=== PATIENT | male | born 1965 | race Caucasian/White ===

== ENCOUNTER → 2018-06-09 07:26 | Outpatient (CLI) | payer OTHER, SELFPAY ==
[2018-06-09 09:22] LABS: Add Manual Diff / Slide Review NO; Basophils Absolute Auto 0 /uL (0-100); Basophils Percent Auto 0.5 % (0-2); Eosinophils Absolute Auto 100 /uL (0-450); Eosinophils Percent Auto 1.7 % (2-4); Hematocrit 43.6 % (41-53); Hemoglobin 15.4 g/dL (13.5-17.5); Lymphocytes Absolute Auto 1400 /uL (1100-4500); Lymphocytes Percent Auto 29.2 % (25-40); Mean Corpuscular HGB Conc 35.2 % (30-36); Mean Corpuscular Hemoglobin 29.3 PG (26-34); Mean Corpuscular Volume 83.1 fL (80-100); Monocytes Absolute Auto 500 /uL (0-900); Monocytes Percent Auto 9.9 % (3-14); Neutrophils Absolute Auto 2800 /uL (1500-7000); Neutrophils Percent Auto 58.7 % (50-75); Platelet Count 214 X10^3/uL (150-400); Red Blood Cell Count 5.25 X10^6/uL (4.5-5.9); Red Cell Distribution Width 13.3 % (11.6-14.8); White Blood Cell Count 4.7 X10^3/uL (4.5-11.0)
[2018-06-09 09:41] LABS: Alanine Aminotransferase 39 IU/L (21-72); Albumin 4.4 g/dL (3.5-5.0); Albumin Globulin Ratio 1.7 (1.0-2.8); Alkaline Phosphatase 65 U/L (38-126); Aspartate Aminotransferase 30 IU/L (17-59); BUN Creatinine Ratio 15.5 (6-22); Bilirubin Total 0.6 mg/dL (0.2-1.3); Blood Urea Nitrogen 17 mg/dL (9-20); Calcium 9.4 mg/dL (8.4-10.2); Carbon Dioxide 29 mmol/L (22-32); Chloride 100 mmol/L (98-107); Cholesterol 180 mg/dL (140-199); Estimated Glomerular Filt Rate > 60.0 mL/min (>60); Globulin 2.6 g/dL (1.7-4.1); Glucose 89 mg/dL (70-100); HDL Cholesterol 37 mg/dL (40-60); HEMOLYSIS < 15 (0-50); LDL Cholesterol Calculated 123 mg/dL (<100); Potassium 4.4 mmol/L (3.4-5.1); Sodium 139 mmol/L (137-145); Triglycerides 98 mg/dL (35-150)
[2018-06-09 09:42] LABS: Hemoglobin A1C% w Est Avg Glu 5.4 % (4.0-6.0)
[2018-06-09 10:13] LABS: TSH w/ Reflex to FT4 5.65 uIU/mL (0.47-4.68)
[2018-06-09 11:35] LABS: Free T4, Direct Thyroxine 1.24 ng/dL (0.78-2.19)
== END ==
PROVIDERS: Family Provider Family Medicine; PCP Family Medicine; Visit Provider Family Medicine
DX: E03.9 Hypothyroidism, unspecified (principal); N52.9 Male erectile dysfunction, unspecified; Z13.220 Encounter for screening for lipoid disorders
CPT/HCPCS: 36415; 80053; 80061; 83036; 84403; 84439; 84443; 85025

== ENCOUNTER → 2018-11-17 11:48 | Outpatient (CLI) | payer OTHER, SELFPAY | PROVIDERS: Family Provider Family Medicine; PCP Family Medicine; Visit Provider Family Medicine | DX: H57.89 Other specified disorders of eye and adnexa (principal) | CPT/HCPCS: 87070; 87205 ==

== ENCOUNTER → 2022-02-12 07:14 | Outpatient (CLI) | payer OTHER, SELFPAY ==
[2022-02-12 08:34] LABS: Cholesterol 203 mg/dL (140-199); HDL Cholesterol 43 mg/dL (40-60); LDL Cholesterol Calculated 143 mg/dL (<100); Triglycerides 84 mg/dL (35-150)
[2022-02-12 08:51] LABS: T4 Total Thyroxine 8.24 ug/dL (5.5-11.0)
[2022-02-12 09:43] LABS: Free T4, Direct Thyroxine 0.91 ng/dL (0.78-2.19)
[2022-02-12 22:07] LABS: Triiodothyronine T3 Total 138 ng/dL (71-180)
== END ==
PROVIDERS: Family Provider Family Medicine; PCP Family Medicine; Referring Provider Family Medicine; Visit Provider Family Medicine
DX: E78.5 Hyperlipidemia, unspecified (principal); E05.90 Thyrotoxicosis, unspecified without thyrotoxic crisis or storm
CPT/HCPCS: 36415; 80061; 84436; 84439; 84443; 84480

== ENCOUNTER → 2022-03-28 10:08 | Outpatient (CLI) | payer OTHER, SELFPAY ==
[2022-03-28 11:20] LABS: Thyroid Stimulating Hormone 10.5 uIU/mL (0.47-4.68)
== END ==
PROVIDERS: Family Provider Family Medicine; PCP Family Medicine; Referring Provider Family Medicine; Visit Provider Family Medicine
DX: E03.9 Hypothyroidism, unspecified (principal)
CPT/HCPCS: 36415; 84443

== ENCOUNTER 2022-05-14 08:05 | Day surgery (SDC) | payer OTHER, SELFPAY ==
--- NOTE | 2022-05-14 | PATH_ITS ---
[facility] Accession Number: [id number] No. of containers..01 Tissue . 01 Material submitted: . colon - RANDOM COLON BIOPSIES . 01 Diagnosis: Random Colon, Biopsies: Lymphocytic colitis. Negative for granulomas, dysplasia, and malignancy. MRV 05/17/2022 1614 Local . 01 Electronically signed: . Lubna Brooks MD, Pathologist NPI- [id number] . 01 Gross description: . RANDOM COLON BIOPSIES: Received in formalin is 1 fragment(s) of ordonez, soft tissue measuring 0.2 x 0.2 x 0.2 cm submitted entirely in 1 cassette(s) /NING 05/15/2022 1840 Local . 01 Pathologist provided ICD-10: K52.89 . 01 CPT . 310020 Specimen Comment: A courtesy copy of this report has been sent to [phone] Performed at: 01 [facility] [address] [place] [address], [place], [place] [id number] MD Nikko Faith MD Phone: [phone]
[2022-05-14 09:21] VITALS: BP 124/78; PULSE 80; RESP 16; TEMP 36.6; O2SAT 96; BMI 34.9
[2022-05-14] MEDS: LACTATED RINGERS 1,000 ML 200 ML IV (09:33)
--- NOTE | 2022-05-14 09:45 | PM.HP.1 ---
History of Present Illness History of Present Illness Date Patient Seen: 05/14/22 Time Patient Seen: 09:46 Chief complaint: Colonoscopy Narrative: The patient presents for colorectal screening. Previously normal exam with low polyp prep 8 years ago.. No personal or family history of colon cancer. On further history denies any recent gastrointestinal symptoms. No nausea, vomiting, abdominal pain, loss of appetite, unexplained weight loss, change in bowel habits, or blood per rectum. Patient History Surgical History Status post knee surgery Family & Social History Family History Mother Age: 80 High cholesterol Grandfather Cancer Grandmother Cancer Sister Age: 59 Obese Social History: household members spouse Tobacco & Substance use: Smoking Status Never smoker alcohol intake frequency a few times a month Substance Use Type does not use Meds Home Medications and Allergies Home Medications Medication Instructions Recorded Confirmed Type sildenafil 50 mg tablet 50 mg PO DAILY PRN sexual activity 06/08/18 05/14/22 Rx #30 tabs tadalafil 5 mg tablet (Cialis) 5 mg PO DAILY PRN sexual activity 02/11/22 05/14/22 Rx #30 tabs levothyroxine 75 mcg tablet 75 mcg PO DAILY #90 tabs 04/02/22 05/14/22 Rx Allergies Allergy/AdvReac Type Severity Reaction Status Date / Time No Known Drug Allergies Allergy Verified 05/14/22 09:19 Exam Vital Signs (past 8 hours): - 05/14/22 09:21 Temperature 97.9 F Pulse Rate 80 Respiratory Rate 16 Blood Pressure 124/78 Pulse Oximetry 96 Oxygen Delivery Method Room Air Oxygen Delivery Method Room Air Narrative Exam Narrative: General adult man alert oriented no acute distress Assessment & Plan Assessment & Plan narrative: The patient requires colorectal screening and colonoscopy is recommended. Technical details were discussed. Risks, benefits, alternatives explained. Risks including but not limited to myocardial infarction, aspiration, bleeding, pain, missed lesion, incomplete examination, need for further radiographic studies, colonic perforation, and need for major abdominal surgery were discussed. All questions were answered to their satisfaction, and they are in agreement with this plan. Time Spent With Patient Critical Care time: I spent a total of [] minutes of critical care time on this patient's care today; this time is exclusive of procedural time.
--- NOTE | 2022-05-14 10:19 | PM.OP.COLON ---
Operative Date/Time/Diagnoses Date of procedure: 05/14/22 Time of procedure: 10:19 Pre-op diagnosis: Colorectal screening Post-op diagnosis: same Procedure & Clinicians Study performed: Colonoscopy Same procedure as scheduled: Yes Indications: Colorectal screening Surgeon: Jaziel Carr Procedure Notes Procedure in detail: The history and physical was performed/updated and the patient is ASA class is 2. The procedure was discussed in detail with the patient. Potential risks complications including infection, bleeding, missed diagnosis, perforation, need for surgery, and were explained. Their questions were answered and informed consent was obtained. Patient was brought to the procedure room and placed standard monitoring equipment. The patient's vital signs were monitored continuously throughout the entire procedure. Prior to starting time-out was performed. The patient was placed in the left lateral recumbent position. Procedural sedation was administered by anesthesia. Examination began with a thorough inspection of the perianal area there was no evidence of fissures, fistulae, external hemorrhoids or cutaneous malignancy. The colonoscopy scope was then placed into the anal canal and was advanced to the cecum, which was identified by the ileocecal valve, the appendiceal orifice and the confluence of the taenia. The scope was then slowly withdrawn examining colon thoroughly in all directions, irrigating it of any residual stool. No colonic masses. Colon is carpeted in small papules not discrete polyps random colonic biopsy was taken. The patient tolerated the procedure well. They will be discharged once criteria are met. The prep was of good/excellent quality. The withdrawl time was 7 minutes. Specimen(s): other (Random colonic biopsy) Impression: Normal colonoscopy Post-procedure Recommendations: Colonoscopy in 10 years and High fiber diet Disposition: same day surgery
[2022-05-14 10:44] VITALS: BP 105/75; PULSE 81; RESP 12; TEMP 36.3; O2SAT 91
[2022-05-14 10:49] VITALS: BP 105/76; PULSE 78; RESP 12; O2SAT 91
[2022-05-14 10:54] VITALS: BP 106/75; PULSE 74; RESP 16; O2SAT 91
[2022-05-14 10:59] VITALS: BP 103/76; PULSE 79; RESP 14; TEMP 37.1; O2SAT 93
== END 2022-05-14 11:19 | disposition home or self-care (01) ==
PROVIDERS: Family Provider Family Medicine; PCP Family Medicine; Referring Provider Surgery; Visit Provider Surgery
PROC: 0DJD8ZZ Inspection of Lower Intestinal Tract, Via Natural or Artificial Opening Endoscopic (ICD-10-PCS; CPT 45378; principal; 2022-05-14 09:15)
DX: Z12.11 Encounter for screening for malignant neoplasm of colon (principal); K52.89 Other specified noninfective gastroenteritis and colitis
CPT/HCPCS: 45380

== ENCOUNTER → 2022-05-20 10:49 | Outpatient (CLI) | payer OTHER, SELFPAY ==
[2022-05-20 13:05] LABS: TSH w/ Reflex to FT4 8.11 uIU/mL (0.47-4.68)
[2022-05-20 13:35] LABS: Free T4, Direct Thyroxine 1.45 ng/dL (0.78-2.19)
== END ==
PROVIDERS: Family Provider Family Medicine; PCP Family Medicine; Referring Provider Family Medicine; Visit Provider Family Medicine
DX: E03.9 Hypothyroidism, unspecified (principal)
CPT/HCPCS: 36415; 84439; 84443

== ENCOUNTER → 2022-06-28 09:54 | Outpatient (CLI) | payer OTHER, SELFPAY ==
[2022-06-28 11:37] LABS: TSH w/ Reflex to FT4 5.45 uIU/mL (0.47-4.68)
[2022-06-28 12:03] LABS: Free T4, Direct Thyroxine 1.38 ng/dL (0.78-2.19)
== END ==
PROVIDERS: Family Provider Family Medicine; PCP Family Medicine; Referring Provider Family Medicine; Visit Provider Family Medicine
DX: E03.9 Hypothyroidism, unspecified (principal)
CPT/HCPCS: 36415; 84439; 84443

== ENCOUNTER → 2022-08-13 13:17 | Outpatient (CLI) | payer OTHER, SELFPAY ==
[2022-08-13 15:21] LABS: TSH w/ Reflex to FT4 3.92 uIU/mL (0.47-4.68)
== END ==
PROVIDERS: Family Provider Family Medicine; PCP Family Medicine; Referring Provider Family Medicine; Visit Provider Family Medicine
DX: E03.9 Hypothyroidism, unspecified (principal)
CPT/HCPCS: 36415; 84443

== ENCOUNTER → 2023-08-27 06:47 | Outpatient (CLI) | payer OTHER, SELFPAY ==
[2023-08-28 08:45] LABS: Cholesterol 192 mg/dL (140-199); HDL Cholesterol 42 mg/dL (40-60); LDL Cholesterol Calculated 130 mg/dL (<100); Triglycerides 100 mg/dL (35-150)
[2023-08-28 08:55] LABS: Hemoglobin A1C% w Est Avg Glu 5.7 % (4.0-6.0)
[2023-08-28 09:11] LABS: Thyroid Stimulating Hormone 7.23 uIU/mL (0.47-4.68)
== END ==
PROVIDERS: Family Provider Family Medicine; PCP Family Medicine; Referring Provider Family Medicine; Visit Provider Family Medicine
DX: E03.9 Hypothyroidism, unspecified (principal); E66.9 Obesity, unspecified
CPT/HCPCS: 80061; 83036; 84443

== ENCOUNTER → 2023-11-11 11:20 | Outpatient (CLI) | payer OTHER, SELFPAY ==
[2023-11-11 13:32] LABS: TSH w/ Reflex to FT4 4.18 uIU/mL (0.47-4.68)
== END ==
PROVIDERS: Family Provider Family Medicine; PCP Family Medicine; Referring Provider Family Medicine; Visit Provider Family Medicine
DX: E03.9 Hypothyroidism, unspecified (principal)
CPT/HCPCS: 36415; 84443

== ENCOUNTER → 2024-11-19 15:19 | Outpatient (CLI) | payer OTHER, SELFPAY ==
[2024-11-19 16:57] LABS: TSH w/ Reflex to FT4 13.10 uIU/mL (0.47-4.68)
[2024-11-19 17:23] LABS: Free T4, Direct Thyroxine 1.26 ng/dL (0.78-2.19)
== END ==
PROVIDERS: Family Provider Family Medicine; PCP Family Medicine; Referring Provider Family Medicine; Visit Provider Family Medicine
DX: E03.9 Hypothyroidism, unspecified (principal)
CPT/HCPCS: 36415; 84439; 84443

== ENCOUNTER → 2025-01-20 12:39 | Outpatient (CLI) | payer OTHER, SELFPAY ==
[2025-01-20 13:45] LABS: TSH w/ Reflex to FT4 5.40 uIU/mL (0.47-4.68)
[2025-01-20 14:10] LABS: Free T4, Direct Thyroxine 1.63 ng/dL (0.78-2.19)
== END ==
PROVIDERS: Family Provider Family Medicine; PCP Family Medicine; Referring Provider Family Medicine; Visit Provider Family Medicine
DX: E03.9 Hypothyroidism, unspecified (principal)
CPT/HCPCS: 36415; 84439; 84443